=== PATIENT | female | born 1940 | race Hispanic/Latino ===

== ENCOUNTER → 2018-05-08 | Outpatient (CLI) | payer OTHER, MEDICARE ==
[~2018-05-08] MED LIST: ALEN70TA47 PO; LISI-617 PO; NAPR-1023 PO; OMEP20TA25 PO; PREG50 PO; RABE20TA27 PO; TRAZ-185 PO
== END | disposition home or self-care (01) ==
LOC: SHCH 14:53
PROVIDERS: ATTEND Internal Medicine Cardiovascular Disease
DX: I87.2 Venous insufficiency (chronic) (peripheral) (principal)
CPT/HCPCS: 93970

== ENCOUNTER → 2018-05-25 | Outpatient (CLI) | payer OTHER, MEDICARE | END | disposition home or self-care (01) | LOC: SHCH 11:25 | PROVIDERS: ATTEND Internal Medicine Cardiovascular Disease | DX: Z09 Encounter for follow-up examination after completed treatment for conditions other than malignant neoplasm (principal) | CPT/HCPCS: 93971 ==

== ENCOUNTER 2018-07-22 19:56 | Emergency (ER) | payer OTHER, MEDICARE ==
[2018-07-22] MEDS ORDERED: MORPHINE SULFATE 4 MG/1ML SYG ONE (22:22)
== END 2018-07-22 23:23 | disposition home or self-care (01) ==
LOC: EDH 19:56
DX: S16.1XXA Strain of muscle, fascia and tendon at neck level, initial encounter (principal); S29.012A Strain of muscle and tendon of back wall of thorax, initial encounter; S39.012A Strain of muscle, fascia and tendon of lower back, initial encounter; S80.11XA Contusion of right lower leg, initial encounter; S09.90XA Unspecified injury of head, initial encounter; I10 Essential (primary) hypertension; E11.9 Type 2 diabetes mellitus without complications; E78.5 Hyperlipidemia, unspecified; Z90.49 Acquired absence of other specified parts of digestive tract; Z90.710 Acquired absence of both cervix and uterus; Z88.0 Allergy status to penicillin; W11.XXXA Fall on and from ladder, initial encounter; Y93.89 Activity, other specified; Y92.89 Other specified places as the place of occurrence of the external cause; Y99.8 Other external cause status
CPT/HCPCS: 70450; 72125; 72128; 72131; 73590; 73630; 96372; 99284; J2270

== ENCOUNTER 2018-07-26 10:17 | Emergency (ER) | payer OTHER, MEDICARE ==
[2018-07-26 11:13] LABS: APPEARANCE,URINE Cloudy (CLEAR); BILIRUBIN,URINE Negative (NEGATIVE); COLOR,URINE Yellow (YELLOW); GLUCOSE, URINE (UA) Negative (NEGATIVE); KETONES,URINE Negative (NEGATIVE); LEUKOCYTE ESTERASE ,URINE Trace (NEGATIVE); NITRATE,URINE Negative (NEGATIVE); OCCULT BLOOD,URINE Nonhemolyzed Trace (NEGATIVE); PROTEIN,URINE Negative (NEGATIVE)
[2018-07-26 11:44] LABS: BACTERIA,URINE Rare /HPF (None Seen); RBC,URINE 0-1 /HPF (0-1); SQUAMOUS EPITHELIAL CELL,UR 0-2 /HPF (0-2); WBC,URINE 0-1 /HPF (0-1)
[2018-07-26] MEDS ORDERED: TRAMADOL HCL 50 MG TABLET ONE (11:51)
== END 2018-07-26 12:20 | disposition home or self-care (01) ==
LOC: EDH 10:17
DX: M62.830 Muscle spasm of back (principal); K59.00 Constipation, unspecified; M54.5 Low back pain; I10 Essential (primary) hypertension; E11.9 Type 2 diabetes mellitus without complications; E78.5 Hyperlipidemia, unspecified; Z90.49 Acquired absence of other specified parts of digestive tract; Z90.89 Acquired absence of other organs; Z90.710 Acquired absence of both cervix and uterus
CPT/HCPCS: 71045; 81001

== ENCOUNTER 2018-08-07 20:43 | Emergency (ER) | payer OTHER, MEDICARE ==
[~2018-08-07 20:43] MED LIST changes: +ALEN70TA10 PO; -ALEN70TA47 PO
[2018-08-07] MEDS ORDERED: LACTULOSE 20 GM/30 ML UDCUP ONE (21:54)
[2018-08-07] MEDS ORDERED: MAGNESIUM CITRATE 296 ML SOLUTION ONE (21:55)
== END 2018-08-07 22:15 | disposition home or self-care (01) ==
LOC: EDH 20:43
DX: K59.00 Constipation, unspecified (principal); E11.9 Type 2 diabetes mellitus without complications; I10 Essential (primary) hypertension; E78.5 Hyperlipidemia, unspecified; Z90.49 Acquired absence of other specified parts of digestive tract; Z90.710 Acquired absence of both cervix and uterus; Z88.0 Allergy status to penicillin
CPT/HCPCS: 74018

== ENCOUNTER → 2018-08-10 | Outpatient (CLI) | payer OTHER, MEDICARE | END | disposition home or self-care (01) | LOC: SHCH 14:53 | PROVIDERS: ATTEND Internal Medicine Cardiovascular Disease | DX: I87.2 Venous insufficiency (chronic) (peripheral) (principal) | CPT/HCPCS: 93970 ==

== ENCOUNTER → 2018-09-17 | Outpatient (CLI) | payer OTHER, MEDICARE | END | disposition home or self-care (01) | LOC: SHCH 14:48 | PROVIDERS: ATTEND Internal Medicine Cardiovascular Disease | DX: I87.2 Venous insufficiency (chronic) (peripheral) (principal) | CPT/HCPCS: 93970 ==

== ENCOUNTER → 2018-10-26 | Outpatient (CLI) | payer OTHER, MEDICARE | END | disposition home or self-care (01) | LOC: SHCH 10:00 | PROVIDERS: ATTEND Internal Medicine Cardiovascular Disease | DX: Z09 Encounter for follow-up examination after completed treatment for conditions other than malignant neoplasm (principal) | CPT/HCPCS: 93971 ==

== ENCOUNTER 2018-11-18 18:34 | Observation (INO) | payer OTHER, MEDICARE ==
[~2018-11-18] VITALS: Ht 152.4 cm; Wt 53.5 kg
[2018-11-18] MEDS ORDERED: ASPIRIN 325 MG TABLET ONE (20:40)
[2018-11-18 21:08] LABS: BASOPHILS % (AUTO) 1.6 % (0.0-5.0); EOSINOPHILS % (AUTO) 1.1 % (0.0-8.0); HEMATOCRIT 38.6 % (36-48); LYMPHOCYTES % (AUTO) 23.2 % (21.0-51.0); MEAN CORPUSCULAR HEMOGLOBIN 30.7 pg (27.0-33.0); MEAN CORPUSCULAR HGB CONC 33.2 g/dL (32.0-36.0); MEAN CORPUSCULAR VOLUME 92.3 fL (79-99); MONOCYTES % (AUTO) 7.1 % (3.0-13.0); NUCLEATED RED BLOOD CELLS 0.1 % (0.0-0.19); PLATELET COUNT (AUTO) 258 K/uL (130-400); RED BLOOD CELL COUNT(AUTO) 4.18 MIL/uL (4.00-5.50); RED CELL DISTRIBUTION WIDTH 15.4 % (11.0-15.5); WHITE BLOOD COUNT (AUTO) 5.7 K/uL (4.8-10.8)
[2018-11-18 21:15] LABS: APPEARANCE,URINE Clear (CLEAR); BILIRUBIN,URINE Negative (NEGATIVE); COLOR,URINE Yellow (YELLOW); GLUCOSE, URINE (UA) Negative (NEGATIVE); KETONES,URINE Negative (NEGATIVE); LEUKOCYTE ESTERASE ,URINE Trace (NEGATIVE); NITRATE,URINE Negative (NEGATIVE); OCCULT BLOOD,URINE Negative (NEGATIVE); PROTEIN,URINE Negative (NEGATIVE); UROBILINOGEN,URINE 0.2 mg/dL (0.2-1.0)
[2018-11-18 21:20] LABS: CREATININE 0.8 mg/dL (0.5-1.5); PARTIAL THROMBOPLASTIN TIME 26.4 SEC (26.3-35.5); POTASSIUM 3.8 mmol/L (3.5-5.1); PROTHROMBIN TIME 10.5 SEC (9.6-11.6)
[2018-11-18 21:25] LABS: B-TYPE NATRIURETIC PEPTIDE 24 pg/mL (0-100)
[2018-11-18 21:30] LABS: BACTERIA,URINE Rare /HPF (None Seen); RBC,URINE 0-1 /HPF (0-1); SQUAMOUS EPITHELIAL CELL,UR Rare /HPF (0-2)
[2018-11-18 21:43] LABS: ALBUMIN 3.7 g/dL (3.5-5.0); BILIRUBIN,TOTAL 0.6 mg/dL (0.2-1.0); TOTAL PROTEIN, SERUM 7.5 g/dL (6.0-8.3)
[2018-11-19 04:20] VITALS: BP 127/58
[2018-11-19] MEDS ORDERED: ONDANSETRON ODT 4 MG TAB PO PRN (05:30)
[2018-11-19] MEDS ORDERED: NITROGLYCERIN 0.4 MG SL TAB SL PRN (05:30)
[2018-11-19] MEDS ORDERED: ACETAMINOPHEN 325 MG TAB PO PRN (05:30)
[2018-11-19 06:29] LABS: CREATININE 0.7 mg/dL (0.5-1.5); POTASSIUM 3.8 mmol/L (3.5-5.1)
[2018-11-19 06:55] LABS: HEMATOCRIT 33.1 % (36-48); MEAN CORPUSCULAR HEMOGLOBIN 30.8 pg (27.0-33.0); MEAN CORPUSCULAR HGB CONC 33.3 g/dL (32.0-36.0); MEAN CORPUSCULAR VOLUME 92.5 fL (79-99); PLATELET COUNT (AUTO) 209 K/uL (130-400); RED BLOOD CELL COUNT(AUTO) 3.58 MIL/uL (4.00-5.50); RED CELL DISTRIBUTION WIDTH 15.6 % (11.0-15.5); WHITE BLOOD COUNT (AUTO) 4.3 K/uL (4.8-10.8)
[2018-11-19 08:00] VITALS: BP 136/66
[2018-11-19] MEDS ORDERED: LISINOPRIL 5 MG TABLET PO PRN (08:15)
[2018-11-19] MEDS ORDERED: LEVO25TA54 PO (08:23)
--- NOTE | 2018-11-19 08:30 | NUR ---
HOME MEDS ENTERED AND RECONCILED ORDERED. ASSESSMENT COMPLETED AND PLAN OF CARE EXPLAINED TO THE PATIENT AND HER DAUGHTER AT THE BEDSIDE. LEFT LOWER EXTREMITY NOTED WITH BROWN DISCOLORATION WITH MILD NON-PITTING EDEMA, AND DAUGHTER MENTIONED THAT THE PATIENT HAD VEIN SURGERY PREVIOUSLY FOR VARICOSE. WILL NOTIFY THE ROUNDING GROUP RESERVATIONS COORDINATOR OF FINDING. FALL PREVENTION AND SAFETY WAS DISCUSSED WITH THE PATIENT AND DAUGHTER.
[2018-11-19] MEDS: ASPIRIN 81MG TAB.CHEW PO SCH (09:55)
[2018-11-19] MEDS: PANTOPRAZOLE SODIUM 40 MG TABLET.DR PO SCH (09:55)
[2018-11-19] MEDS: ENOXAPARIN SODIUM 40 MG/0.4 ML SYRINGE SQ SCH (10:01)
[2018-11-19] MEDS: SODIUM CHLORIDE 0.9% 1000ML 1,000 ML IV SCH ×3 (10:02→21:29)
[2018-11-19 11:00] VITALS: BP 138/57
--- NOTE | 2018-11-19 15:51 | NUR ---
DCP CM met with and family discussed dc plans. Pt is assist with ADL's prior to admission, lives at home with spouse, daughter lives close by. Has a cane and shower chair. Denies any other equipments/services. Pt feels safe to go back home, spouse and daughter able to assist with transportation and needs as necessary. DC plan to home once stable. CM to cont to follow up. Addendum: 11/19/18 at 1552 by PALAK MANCINI LVN CM Amended: Links added.
[2018-11-19 16:00] VITALS: BP 131/54
--- NOTE | 2018-11-19 18:00 | NUR ---
ART APPRAISER CAME BACK TO SEE THE PATIENT AND SAID THAT SHE CAN BE DISCHARGED TOMORROW MORNING WITH PCP FOLLOW-UP. NO PRESCRIPTION.
[2018-11-19 20:00] VITALS: BP 122/61
[2018-11-19] MEDS ORDERED: TRAZODONE HCL 50 MG TAB PO SCH (21:00)
[2018-11-20] VITALS: BP 135/56
[2018-11-20 04:00] VITALS: BP 121/56
--- NOTE | 2018-11-20 06:53 | NUR ---
PATIENT UPDATE SLEPT WELL OVERNIGHT, NO COMPLAINTS OF CHEST PAIN NOR LIGHT HEADEDNESS. CONTINUES WITH THE HYDRATION WITH NS AT 100 CC/HR OVERNIGHT, VITAL SIGNS STABLE, FOR DISCHARGE THIS AM PER BENCHMARK.
[2018-11-20] MEDS ORDERED: LEVOTHYROXINE 25 MCG TABLET PO SCH (07:30)
[2018-11-20 08:14] VITALS: BP 138/60
[2018-11-20] MEDS ORDERED: NON-FORMULARY MEDICATION 1 EACH (Omeprazole 20 MG) PO SCH (09:00)
[2018-11-20] MEDS: PANTOPRAZOLE SODIUM 40 MG TABLET.DR PO SCH (09:22)
[2018-11-20] MEDS: ASPIRIN 81MG TAB.CHEW PO SCH (09:22)
[2018-11-20] MEDS: ENOXAPARIN SODIUM 40 MG/0.4 ML SYRINGE SQ SCH (09:22)
[2018-11-26] MEDS ORDERED: ALENDRONATE SODIUM 35 MG TAB PO SCH (06:30)
== END 2018-11-20 10:20 | disposition home or self-care (01) ==
LOC: EDH 18:34 → EDHIP 22:20 → 3DH 11-19 00:50
PROVIDERS: ADMIT Internal Medicine Pulmonary Disease; ATTEND Internal Medicine Pulmonary Disease
DX: R42 Dizziness and giddiness (principal); E11.9 Type 2 diabetes mellitus without complications; I10 Essential (primary) hypertension; K21.9 Gastro-esophageal reflux disease without esophagitis; K59.00 Constipation, unspecified; I82.812 Embolism and thrombosis of superficial veins of left lower extremity; M81.0 Age-related osteoporosis without current pathological fracture; Z90.710 Acquired absence of both cervix and uterus; Z90.49 Acquired absence of other specified parts of digestive tract; Z79.899 Other long term (current) drug therapy; Z79.01 Long term (current) use of anticoagulants
CPT/HCPCS: 36415 ×2; 70450; 71045; 80048; 80053; 81001; 82550 ×3; 82948 ×4; 83605; 83690; 83880; 84484 ×2; 85025; 85027; 85610; 85730; 93005; 93971; 96360; 96361 ×2; 96372 ×2; 99284; G0378 ×36; J1650 ×2; J7030

== ENCOUNTER → 2018-12-09 | Outpatient (CLI) | payer OTHER, MEDICARE ==
[~2018-12-09] MED LIST changes: -ALEN70TA10 PO; +LEVO25TA54 PO; -NAPR-1023 PO; -PREG50 PO; -RABE20TA27 PO
== END | disposition home or self-care (01) ==
LOC: SHCH 14:31
PROVIDERS: ATTEND Internal Medicine Cardiovascular Disease
DX: I65.23 Occlusion and stenosis of bilateral carotid arteries (principal)
CPT/HCPCS: 93880

== ENCOUNTER → 2018-12-18 | Outpatient (CLI) | payer OTHER, MEDICARE ==
[~2018-12-18] VITALS: Ht 152.4 cm; Wt 53.5 kg
[~2018-12-18] MED LIST changes: +REGADENOSON 0.4 MG/5 ML PF SYG IVP SCH
== END | disposition home or self-care (01) ==
LOC: SHCH 08:12
PROVIDERS: ATTEND Internal Medicine Cardiovascular Disease
DX: R07.9 Chest pain, unspecified (principal); R06.02 Shortness of breath
CPT/HCPCS: 78452; 93017; 96374; A9500 ×2; J2785

== ENCOUNTER → 2019-04-22 | Outpatient (CLI) | payer OTHER, MEDICARE ==
[~2019-04-22] MED LIST changes: +LISI-613 PO; -LISI-617 PO; +MELA1TAB21 PO; -OMEP20TA25 PO; +OMEP40CA37 PO; +PARO-37 PO; +RANI300T4 PO; -REGADENOSON 0.4 MG/5 ML PF SYG IVP SCH; -TRAZ-185 PO; +TRAZ150T79 PO
== END | disposition home or self-care (01) ==
LOC: RAH 07:35
PROVIDERS: ATTEND Internal Medicine
DX: R94.5 Abnormal results of liver function studies (principal); Z90.49 Acquired absence of other specified parts of digestive tract
CPT/HCPCS: 76700

== ENCOUNTER → 2019-09-01 | Outpatient (CLI) | payer OTHER, MEDICARE ==
[~2019-09-01] MED LIST changes: +ACET-2247 PO; +CYAN-52 PO; +FAMO40TA7 PO; +HYDR20VI6 IV; +OMEG-148 PO; -OMEP40CA37 PO; +PANT40TA PO; -PARO-37 PO; -RANI300T4 PO; +TRAM50TA4 PO; -TRAZ150T79 PO
--- NOTE | 2019-09-01 11:30 | NUR ---
MBSS COMPLETED. TRACE PENETRATION WITH THIN LIQUIDS VIA STRAW. RECOMMEND REGULAR TEXTURE, THIN LIQUIDS; PILLS WHOLE WITH LIQUIDS. RECOMMENDATIONS: 1. SKILLED SPEECH THERAPY 2XWK TARGETING PHARYNGEAL SWALLOW. HAND II CUTTER PROVIDED RESULTS AND RECOMMENDATIONS VIA WRITTEN MODALITY IN Pt'S [place] LANGUAGE OF M[place]. ALL QUESTIONS ANSWERED AT THIS TIME. Addendum: 09/01/19 at 1341 by CELESTE STARK, [facility] Amended: Links added.
== END | disposition home or self-care (01) ==
LOC: RAH 10:50
PROVIDERS: ATTEND Internal Medicine
DX: R13.13 Dysphagia, pharyngeal phase (principal); R74.8 Abnormal levels of other serum enzymes
CPT/HCPCS: 74230; 92611

== ENCOUNTER 2019-10-29 06:41 | Emergency (ER) | payer OTHER, MEDICARE ==
[2019-10-29] MEDS ORDERED: ONDANSETRON HCL 4 MG/2 ML VIAL ONE (07:23)
[2019-10-29] MEDS ORDERED: LOPERAMIDE HCL 2 MG CAP PO ONE (07:23)
[2019-10-29 08:12] LABS: BASOPHILS % (AUTO) 0.3 % (0.0-5.0); EOSINOPHILS % (AUTO) 0.1 % (0.0-8.0); HEMATOCRIT 35.4 % (36-48); LYMPHOCYTES % (AUTO) 18.6 % (21.0-51.0); MEAN CORPUSCULAR HEMOGLOBIN 29.9 pg (27.0-33.0); MEAN CORPUSCULAR HGB CONC 31.9 g/dL (32.0-36.0); MEAN CORPUSCULAR VOLUME 93.7 fL (79-99); MONOCYTES % (AUTO) 4.2 % (3.0-13.0); NEUTROPHILS % (AUTO) 70.8 % (40.0-77.0); NUCLEATED RED BLOOD CELLS 0.3 % (0.0-0.19); PLATELET COUNT (AUTO) 161 K/uL (130-400); RED BLOOD CELL COUNT(AUTO) 3.78 MIL/uL (4.00-5.50); RED CELL DISTRIBUTION WIDTH 16.2 % (11.0-15.5); WHITE BLOOD COUNT (AUTO) 10.9 K/uL (4.8-10.8)
[2019-10-29 08:26] LABS: CREATININE 0.6 mg/dL (0.5-1.5); POTASSIUM 4.5 mmol/L (3.5-5.1)
[2019-10-29 08:32] LABS: BILIRUBIN,DIRECT 0.1 mg/dL (0.0-0.3); BILIRUBIN,TOTAL 0.7 mg/dL (0.2-1.0); TOTAL PROTEIN, SERUM 6.2 g/dL (6.0-8.3)
== END 2019-10-29 09:42 | disposition home or self-care (01) ==
LOC: EDH 06:41
DX: K52.9 Noninfective gastroenteritis and colitis, unspecified (principal); E11.9 Type 2 diabetes mellitus without complications; E78.5 Hyperlipidemia, unspecified; I10 Essential (primary) hypertension; E03.9 Hypothyroidism, unspecified; Z88.1 Allergy status to other antibiotic agents; Z88.0 Allergy status to penicillin; Z90.49 Acquired absence of other specified parts of digestive tract
CPT/HCPCS: 36415; 74176; 80048; 80076; 82550; 83690; 84484; 85025; 93005; 96374; 99285; J2405

== ENCOUNTER → 2020-03-10 | Outpatient (CLI) | payer OTHER, MEDICARE | END | disposition home or self-care (01) | LOC: SHCH 13:08 | PROVIDERS: ATTEND Internal Medicine Cardiovascular Disease | DX: R01.1 Cardiac murmur, unspecified (principal) | CPT/HCPCS: 93306 ==

== ENCOUNTER → 2020-03-20 | Outpatient (CLI) | payer OTHER, MEDICARE | END | disposition home or self-care (01) | LOC: SHCH 15:34 | PROVIDERS: ATTEND Internal Medicine Cardiovascular Disease | DX: I73.9 Peripheral vascular disease, unspecified (principal); I82.812 Embolism and thrombosis of superficial veins of left lower extremity | CPT/HCPCS: 93970 ==

== ENCOUNTER → 2020-05-10 | Outpatient (CLI) | payer OTHER, MEDICARE ==
[2020-05-10 18:17] LABS: CREATININE 0.7 mg/dL (0.5-1.5)
[2020-05-10 18:22] LABS: INR 0.92 (0.85-1.15)
[2020-05-12 17:10] LABS: HEPATITIS A ANTIBODY IGM Negative (Negative); HEPATITIS B CORE IGM Negative (Negative); HEPATITIS Bs ANTIGEN SCREEN P Positive (Negative)
== END | disposition home or self-care (01) ==
LOC: LAB 16:54
PROVIDERS: ATTEND Internal Medicine Gastroenterology
DX: R93.2 Abnormal findings on diagnostic imaging of liver and biliary tract (principal); R10.84 Generalized abdominal pain
CPT/HCPCS: 36415; 80074; 82565; 84520; 85610

== ENCOUNTER → 2020-05-25 | Outpatient (CLI) | payer OTHER, MEDICARE ==
[~2020-05-25] MED LIST changes: +IOHEXOL 350 MG/ML 100ML INFUS..BTL IV ONE
== END | disposition home or self-care (01) ==
LOC: OIH 10:00
PROVIDERS: ATTEND Internal Medicine Gastroenterology
DX: N28.1 Cyst of kidney, acquired (principal); R18.8 Other ascites; J90 Pleural effusion, not elsewhere classified; R10.9 Unspecified abdominal pain
CPT/HCPCS: 74178; Q9967

== ENCOUNTER → 2020-09-20 | Outpatient (CLI) | payer OTHER, MEDICARE ==
[~2020-09-20] MED LIST changes: -IOHEXOL 350 MG/ML 100ML INFUS..BTL IV ONE; -LISI-613 PO; +LISI20TA24 PO
== END | disposition home or self-care (01) ==
LOC: RAH 15:02
PROVIDERS: ATTEND Internal Medicine
DX: R91.8 Other nonspecific abnormal finding of lung field (principal); M47.815 Spondylosis without myelopathy or radiculopathy, thoracolumbar region
CPT/HCPCS: 71046

== ENCOUNTER 2020-09-26 13:30 | Emergency (ER) | payer OTHER, MEDICARE ==
[2020-09-26] MEDS ORDERED: POTASSIUM BICARB/CIT AC 25 MEQ TABLET.EFF PO ONE (13:31)
[2020-09-26] MEDS ORDERED: LEVOFLOXACIN 500 MG TABLET PO ONE (13:31)
[2020-09-26] MEDS ORDERED: DEXAMETHASONE SOD PHOSPHATE 10MG/ML 1ML VIAL IM ONE (13:31)
[2020-09-26 14:37] LABS: APPEARANCE,URINE Clear (CLEAR); BILIRUBIN,URINE Negative (NEGATIVE); COLOR,URINE Yellow (YELLOW); GLUCOSE, URINE (UA) Negative (NEGATIVE); KETONES,URINE Negative (NEGATIVE); LEUKOCYTE ESTERASE ,URINE Negative (NEGATIVE); NITRATE,URINE Negative (NEGATIVE); OCCULT BLOOD,URINE Negative (NEGATIVE); PROTEIN,URINE Negative (NEGATIVE); UROBILINOGEN,URINE 0.2 mg/dL (0.2-1.0)
[2020-09-26 14:46] LABS: INR 1.03 (0.85-1.15); PROTHROMBIN TIME 11.2 SEC (9.6-11.6)
[2020-09-26 14:48] LABS: PARTIAL THROMBOPLASTIN TIME 27.3 SEC (26.3-35.5)
[2020-09-26 14:59] LABS: BILIRUBIN,TOTAL 0.7 mg/dL (0.2-1.0); CREATININE 0.7 mg/dL (0.5-1.5); POTASSIUM 3.2 mmol/L (3.5-5.1); TOTAL PROTEIN, SERUM 7.2 g/dL (6.0-8.3)
== END 2020-09-26 18:53 | disposition home or self-care (01) ==
LOC: EDH 13:30
DX: U07.1 COVID-19 (principal); J12.82 Pneumonia due to coronavirus disease 2019; I10 Essential (primary) hypertension; E11.9 Type 2 diabetes mellitus without complications; E03.9 Hypothyroidism, unspecified; Z90.49 Acquired absence of other specified parts of digestive tract; Z88.0 Allergy status to penicillin; Z88.1 Allergy status to other antibiotic agents; Z79.899 Other long term (current) drug therapy
CPT/HCPCS: 36415; 71250; 80053; 81003; 84484; 85610; 85730; 96374; 99284; J1100

== ENCOUNTER → 2021-07-09 | Outpatient (CLI) | payer OTHER, MEDICARE | END | disposition home or self-care (01) | LOC: RAH 11:30 | PROVIDERS: ATTEND Internal Medicine | DX: M47.815 Spondylosis without myelopathy or radiculopathy, thoracolumbar region (principal); Z90.49 Acquired absence of other specified parts of digestive tract; R74.8 Abnormal levels of other serum enzymes | CPT/HCPCS: 71046; 76705 ==

== ENCOUNTER → 2022-03-11 | Outpatient (CLI) | payer OTHER, MEDICARE ==
[~2022-03-11] MED LIST changes: +HYDR20VI16 IV; -HYDR20VI6 IV
== END | disposition home or self-care (01) ==
LOC: RAH 07:57
PROVIDERS: ATTEND Internal Medicine
DX: K76.0 Fatty (change of) liver, not elsewhere classified (principal); R14.0 Abdominal distension (gaseous)
CPT/HCPCS: 76700

== ENCOUNTER 2022-05-13 18:43 | Emergency (ER) | payer OTHER, MEDICARE ==
[~2022-05-13] VITALS: Ht 152.4 cm; Wt 67.6 kg
[2022-05-13 20:01] LABS: BASOPHILS % (AUTO) 0.3 % (0.0-5.0); EOSINOPHILS % (AUTO) 1.1 % (0.0-8.0); HEMATOCRIT 33.3 % (36-48); LYMPHOCYTES % (AUTO) 22.1 % (21.0-51.0); MEAN CORPUSCULAR HEMOGLOBIN 30.5 pg (27.0-33.0); MEAN CORPUSCULAR HGB CONC 32.1 g/dL (32.0-36.0); MEAN CORPUSCULAR VOLUME 94.9 fL (79-99); MONOCYTES % (AUTO) 8.3 % (3.0-13.0); NEUTROPHILS % (AUTO) 67.6 % (40.0-77.0); PLATELET COUNT (AUTO) 318 K/uL (130-400); RED BLOOD CELL COUNT(AUTO) 3.51 MIL/uL (4.00-5.50); RED CELL DISTRIBUTION WIDTH 16.3 % (11.0-15.5); WHITE BLOOD COUNT (AUTO) 6.6 K/uL (4.8-10.8)
[2022-05-13 20:12] LABS: CREATININE 0.9 mg/dL (0.5-1.5); POTASSIUM 3.5 mmol/L (3.5-5.1)
[2022-05-13 20:16] LABS: APPEARANCE,URINE CLEAR (CLEAR); BILIRUBIN,URINE NEGATIVE (NEGATIVE); COLOR,URINE LIGHT-YELLOW (YELLOW); GLUCOSE, URINE (UA) NEGATIVE (NEGATIVE); KETONES,URINE NEGATIVE (NEGATIVE); LEUKOCYTE ESTERASE ,URINE NEGATIVE Leu/uL (NEGATIVE); NITRATE,URINE NEGATIVE (NEGATIVE); OCCULT BLOOD,URINE NEGATIVE (NEGATIVE); PH,URINE 6.5 (5.0-8.0); PROTEIN,URINE NEGATIVE (NEGATIVE); UROBILINOGEN,URINE 0.2 mg/dL (0.2-1.0)
[2022-05-13 20:23] LABS: ALBUMIN 3.3 g/dL (3.5-5.0); TOTAL PROTEIN, SERUM 7.4 g/dL (6.0-8.3)
[2022-05-13 23:30] VITALS: BP 160/72
== END 2022-05-13 23:49 | disposition home or self-care (01) ==
LOC: EDH 18:43
DX: I10 Essential (primary) hypertension (principal); F43.0 Acute stress reaction; Z20.822 Contact with and (suspected) exposure to COVID-19; Z88.0 Allergy status to penicillin; Z88.1 Allergy status to other antibiotic agents
CPT/HCPCS: 99285; 71045; 87635; 84484; 80053; 85025; 87804 ×2; 81003; 36415; 93005 ×2; C9803

== ENCOUNTER 2022-07-27 15:38 | Emergency (ER) | payer OTHER, MEDICARE ==
[~2022-07-27] VITALS: Ht 160 cm; Wt 77.1 kg
[2022-07-27] MEDS ORDERED: LACTATED RINGERS 1000ML 1,000 ML IV ONE (16:00)
[2022-07-27 16:55] LABS: BASOPHILS % (AUTO) 0.3 % (0.0-5.0); EOSINOPHILS % (AUTO) 0.3 % (0.0-8.0); LYMPHOCYTES % (AUTO) 13.1 % (21.0-51.0); MEAN CORPUSCULAR HEMOGLOBIN 29.1 pg (27.0-33.0); MEAN CORPUSCULAR HGB CONC 31.9 g/dL (32.0-36.0); MEAN CORPUSCULAR VOLUME 91.4 fL (79-99); MONOCYTES % (AUTO) 9.4 % (3.0-13.0); NEUTROPHILS % (AUTO) 76.3 % (40.0-77.0); PLATELET COUNT (AUTO) 303 K/uL (130-400); RED BLOOD CELL COUNT(AUTO) 4.05 MIL/uL (4.00-5.50); RED CELL DISTRIBUTION WIDTH 15.3 % (11.0-15.5); WHITE BLOOD COUNT (AUTO) 11.6 K/uL (4.8-10.8)
[2022-07-27 17:02] LABS: CREATININE 0.9 mg/dL (0.5-1.5); POTASSIUM 3.5 mmol/L (3.5-5.1)
[2022-07-27 17:07] LABS: ALBUMIN 3.7 g/dL (3.5-5.0)
[2022-07-27 17:38] LABS: APPEARANCE,URINE CLEAR (CLEAR); BILIRUBIN,URINE NEGATIVE (NEGATIVE); COLOR,URINE LIGHT-YELLOW (YELLOW); GLUCOSE, URINE (UA) NEGATIVE (NEGATIVE); KETONES,URINE NEGATIVE (NEGATIVE); LEUKOCYTE ESTERASE ,URINE NEGATIVE Leu/uL (NEGATIVE); NITRATE,URINE NEGATIVE (NEGATIVE); OCCULT BLOOD,URINE NEGATIVE (NEGATIVE); PROTEIN,URINE 10 mg/dL (NEGATIVE); UROBILINOGEN,URINE 0.2 mg/dL (0.2-1.0)
[2022-07-27 17:41] LABS: BACTERIA,URINE RARE /HPF (None Seen); MUCUS,URINE RARE LPF (None Seen); RBC,URINE 0-1 /HPF (0-1); WBC,URINE 0-1 /HPF (0-1)
[2022-07-27] MEDS ORDERED: PANTOPRAZOLE 40 MG/VIAL IVP ONE (18:00)
[2022-07-27] MEDS ORDERED: PANT40SU PO (18:42)
[2022-07-27 19:26] VITALS: BP 169/76
== END 2022-07-27 19:29 | disposition home or self-care (01) ==
LOC: EDH 15:38
DX: A08.4 Viral intestinal infection, unspecified (principal); E78.00 Pure hypercholesterolemia, unspecified; I10 Essential (primary) hypertension; M19.90 Unspecified osteoarthritis, unspecified site; E03.9 Hypothyroidism, unspecified; Z88.1 Allergy status to other antibiotic agents; Z88.0 Allergy status to penicillin; Z79.899 Other long term (current) drug therapy
CPT/HCPCS: 80053; 83690; 85025; 81001; 36415; 96374; 99283; C9113

== ENCOUNTER 2022-10-01 14:09 | Emergency (ER) | payer OTHER, MEDICARE ==
[~2022-10-01] VITALS: Ht 152.4 cm; Wt 54.4 kg
[~2022-10-01 14:09] MED LIST changes: -MELA1TAB21 PO; +MELA1TAB73 PO; +PANT40SU PO
[2022-10-01 16:06] LABS: BASOPHILS % (AUTO) 0.2 % (0.0-5.0); EOSINOPHILS % (AUTO) 0.5 % (0.0-8.0); HEMATOCRIT 36.7 % (36-48); LYMPHOCYTES % (AUTO) 19.9 % (21.0-51.0); MEAN CORPUSCULAR HEMOGLOBIN 28.2 pg (27.0-33.0); MEAN CORPUSCULAR HGB CONC 31.9 g/dL (32.0-36.0); MEAN CORPUSCULAR VOLUME 88.4 fL (79-99); MONOCYTES % (AUTO) 9.4 % (3.0-13.0); NEUTROPHILS % (AUTO) 69.8 % (40.0-77.0); PLATELET COUNT (AUTO) 285 K/uL (130-400); RED BLOOD CELL COUNT(AUTO) 4.15 MIL/uL (4.00-5.50); RED CELL DISTRIBUTION WIDTH 16.2 % (11.0-15.5); WHITE BLOOD COUNT (AUTO) 8.7 K/uL (4.8-10.8)
[2022-10-01 16:15] LABS: CREATININE 0.9 mg/dL (0.5-1.5); POTASSIUM 3.5 mmol/L (3.5-5.1)
[2022-10-01 16:19] LABS: ALBUMIN 3.7 g/dL (3.5-5.0); TOTAL PROTEIN, SERUM 7.4 g/dL (6.0-8.3)
[2022-10-01] MEDS ORDERED: MAG/ALUM/SIMETH 30 ML UDCUP PO ONE (16:30)
[2022-10-01] MEDS ORDERED: ONDANSETRON 4MG INJ IVP ONE (16:30)
[2022-10-01] MEDS ORDERED: LIDOCAINE HCL 2% VISCOUS 15 ML UDCUP PO ONE (16:30)
[2022-10-01] MEDS ORDERED: 0.9%NACL 1000ML 1,000 ML IV ONE (17:00)
[2022-10-01 17:04] LABS: APPEARANCE,URINE CLEAR (CLEAR); BILIRUBIN,URINE NEGATIVE (NEGATIVE); COLOR,URINE YELLOW (YELLOW); GLUCOSE, URINE (UA) NEGATIVE (NEGATIVE); KETONES,URINE NEGATIVE (NEGATIVE); LEUKOCYTE ESTERASE ,URINE 25 Leu/uL (NEGATIVE); NITRATE,URINE NEGATIVE (NEGATIVE); OCCULT BLOOD,URINE NEGATIVE (NEGATIVE); PROTEIN,URINE 30 mg/dL (NEGATIVE)
[2022-10-01 17:09] LABS: MUCUS,URINE RARE LPF (None Seen); SQUAMOUS EPITHELIAL CELL,UR RARE /HPF (0-2)
[2022-10-01] MEDS ORDERED: IOHEXOL 350 MG/ML 100ML INFUS..BTL IV ONE (18:28)
[2022-10-01] MEDS ORDERED: LISINOPRIL 5 MG TABLET PO STA (19:41)
[2022-10-01] MEDS ORDERED: PANTOPRAZOLE 40 MG/VIAL IVP ONE (20:00)
[2022-10-01] MEDS ORDERED: HYOSCYAMINE SULFATE 0.125 MG TAB.SUBL SL ONE (20:59)
[2022-10-01] MEDS ORDERED: HYOSCYAMINE SULFATE 0.125 MG TAB.SUBL SL SCH (21:00)
[2022-10-01] MEDS ORDERED: PHENAZOPYRIDINE HCL 200 MG TABLET ONE (22:06)
[2022-10-01 22:33] LABS: APPEARANCE,URINE CLEAR (CLEAR); BILIRUBIN,URINE NEGATIVE (NEGATIVE); COLOR,URINE COLORLESS (YELLOW); GLUCOSE, URINE (UA) NEGATIVE (NEGATIVE); KETONES,URINE NEGATIVE (NEGATIVE); LEUKOCYTE ESTERASE ,URINE NEGATIVE Leu/uL (NEGATIVE); NITRATE,URINE NEGATIVE (NEGATIVE); PH,URINE 6.5 (5.0-8.0); PROTEIN,URINE NEGATIVE (NEGATIVE); UROBILINOGEN,URINE 0.2 mg/dL (0.2-1.0)
[2022-10-01 22:47] LABS: MUCUS,URINE RARE LPF (None Seen); SQUAMOUS EPITHELIAL CELL,UR RARE /HPF (0-2); WBC,URINE 0-1 /HPF (0-1)
[2022-10-01 23:07] VITALS: BP 166/69
[2022-10-01] MEDS ORDERED: CEPH500B PO (23:13)
[2022-10-01] MEDS ORDERED: DICY20TA2 PO (23:13)
== END 2022-10-01 23:29 | disposition home or self-care (01) ==
LOC: EDH 14:09
DX: N39.0 Urinary tract infection, site not specified (principal); R10.84 Generalized abdominal pain; E11.9 Type 2 diabetes mellitus without complications; E78.00 Pure hypercholesterolemia, unspecified; I10 Essential (primary) hypertension; Z79.899 Other long term (current) drug therapy; Z88.0 Allergy status to penicillin; Z88.1 Allergy status to other antibiotic agents; Z90.49 Acquired absence of other specified parts of digestive tract
CPT/HCPCS: 99285; 74177; 96374; 96361; 96375; 82270; 84484; 80053; 83690; 85025; 83605 ×2; 81001 ×2; 36415; 93005 ×2; J7030; J2405; C9113; Q9967